=== PATIENT | male | born 1945 | race Caucasian/White ===

== ENCOUNTER 2019-02-12 14:03 | Inpatient (IN) | payer MEDICARE, OTHER ==
[~2019-02-12] VITALS: Ht 185.4 cm; Wt 109.8 kg
--- NOTE | 2019-02-12 14:13 | NUR ---
MD IS AT THE BEDSIDE FOR ASSESSMENT
--- NOTE | 2019-02-12 14:20 | NUR ---
phlebotomy is at the bedside for blood sampling.
[2019-02-12] MEDS ORDERED: SODIUM CHLORIDE FLUSH 10ML SYR IVF ONE (14:30)
[2019-02-12] MEDS ORDERED: methylPREDNISolone SOD SUCC 125 MG/2 ML IV ONE (14:30)
[2019-02-12 14:43] LABS: MEAN CORPUSCULAR HEMOGLOBIN 36.7 pg (27.5-34.5); MEAN CORPUSCULAR VOLUME 107.9 fL (81-97); MEAN PLATELET VOLUME 8.7 fL (7.4-10.4); PLATELET COUNT 116 x10^3/uL (130-400); RED BLOOD COUNT 2.69 x10^6/uL (4.38-5.82); RED CELL DISTRIBUTION WIDTH 20.5 % (9.4-14.8)
[2019-02-12 14:52] LABS: ALANINE AMINOTRANSFERASE 51 U/L (12-78); ALBUMIN 3.3 g/dL (3.4-5.0); ANION GAP 9 mmol/L (5-15); CHLORIDE 106 mmol/L (98-107); CREATININE 1.51 mg/dL (0.7-1.3)
[2019-02-12] MEDS ORDERED: methylPREDNISolone SOD SUCC 125 MG/2 ML ONE (14:53)
[2019-02-12 14:57] LABS: ALKALINE PHOSPHATASE 72 U/L (45-117); BILIRUBIN,TOTAL 1.6 mg/dL (0.2-1.0); TOTAL PROTEIN 7.5 g/dL (6.4-8.2); TROPONIN I < 0.015 ng/mL (0.000-0.045)
--- NOTE | 2019-02-12 14:59 | NUR ---
is at the bedside for recheck
[2019-02-12] MEDS ORDERED: ALBUTEROL/IPRATROPIUM 2.5MG/0.5MG, 3 ML NPPB ONE (15:00)
[2019-02-12 15:02] LABS: MD YES
[2019-02-12 15:06] LABS: ANISOCYTOSIS 1+; BAND#(MANUAL) 1.52 x10^3/uL; BANDS%(MANUAL) 20 % (0-7); LYMPH#(MANUAL) 0.38 x10^3/uL (1-3.4); LYMPHS% (MANUAL) 5 % (22-44); MONOS#(MANUAL) 0.76 x10^3/uL (0.3-2.7); MONOS% (MANUAL) 10 % (2-9); SEG#(MANUAL) 4.94 x10^3/uL (1.8-6.8); SEGS% (MANUAL) 65 % (42-75)
[2019-02-12 15:07] LABS: <PLATELET ESTIMATE> DECREASED; LARGE PLATELETS 1+; POLYCHROMASIA 1+
[2019-02-12] MEDS ORDERED: SODIUM CHLORIDE 0.9% 1,000 ML IV SCH (15:24)
[2019-02-12] MEDS ORDERED: CEFTRIAXONE PMX 1GM/50ML 50 ML ONE (15:25)
[2019-02-12] MEDS ORDERED: ALBUTEROL/IPRATROPIUM 2.5MG/0.5MG, 3 ML ONE (15:26)
[2019-02-12] MEDS ORDERED: CEFTRIAXONE PMX 1GM/50ML 50 ML IV ONE (15:30)
[2019-02-12] MEDS ORDERED: AZITHROMYCIN 500 MG in SODIUM CHLORIDE 0.9% 250 ML IV ONE (15:30)
[2019-02-12] MEDS: HEPARIN 5,000 UNITS/ML, 1ML SQ SCH (15:30)
[2019-02-12] MEDS ORDERED: ONDANSETRON 2MG/ML, 2ML IVPush PRN (15:30)
[2019-02-12] MEDS ORDERED: ACETAMINOPHEN 325 MG TABLET PO PRN (15:30)
[2019-02-12] MEDS ORDERED: NICOTINE 21 MG/24 HR PATCH.TD24 ONE (16:23)
[2019-02-12] MEDS ORDERED: HEPARIN 5,000 UNITS/ML, 1ML ONE (16:23)
[2019-02-12] MEDS: NICOTINE 21 MG/24 HR PATCH.TD24 TD SCH (17:17)
[2019-02-12] MEDS ORDERED: OXYcodone IR 5MG TABLET ONE (17:38)
[2019-02-12] MEDS: OXYcodone IR 5MG TABLET PO PRN (17:41)
--- NOTE | 2019-02-12 17:48 | NUR ---
VERBAL SBAR EXCHANGED Manohar MURDOCK (DIANE) ON THE FLOOR FOR ADMISSION. WE WILL BEGIN TO PREPARE FOR TRANSPORT AT THIS TIME.
[2019-02-12 19:45] VITALS: BP 108/57
[2019-02-13 00:56] VITALS: BP 145/81
[2019-02-13] MEDS: HEPARIN 5,000 UNITS/ML, 1ML SQ SCH ×2 (03:25→16:05)
[2019-02-13] MEDS: OXYcodone IR 5MG TABLET PO PRN ×4 (04:10→21:55)
[2019-02-13 05:34] LABS: ALANINE AMINOTRANSFERASE 43 U/L (12-78); ALBUMIN 2.9 g/dL (3.4-5.0); ANION GAP 7 mmol/L (5-15); CALCIUM 8.7 mg/dL (8.5-10.1); CHLORIDE 113 mmol/L (98-107); CREATININE 1.19 mg/dL (0.7-1.3)
[2019-02-13 05:36] LABS: ALKALINE PHOSPHATASE 61 U/L (45-117); BILIRUBIN,TOTAL 0.7 mg/dL (0.2-1.0); TOTAL PROTEIN 7.3 g/dL (6.4-8.2)
[2019-02-13 07:45] VITALS: BP 111/66
[2019-02-13 12:27] VITALS: BP 93/53
[2019-02-13] MEDS ORDERED: ALBUTEROL/IPRATROPIUM 2.5MG/0.5MG, 3 ML ONE (13:08)
[2019-02-13 13:17] LABS: MEAN CORPUSCULAR HEMOGLOBIN 35.5 pg (27.5-34.5); MEAN CORPUSCULAR HGB CONC 32.4 g/dL (33.2-36.2); MEAN CORPUSCULAR VOLUME 109.7 fL (81-97); MEAN PLATELET VOLUME 8.5 fL (7.4-10.4); PLATELET COUNT 127 x10^3/uL (130-400); RED BLOOD COUNT 2.65 x10^6/uL (4.38-5.82); RED CELL DISTRIBUTION WIDTH 20.6 % (9.4-14.8)
[2019-02-13] MEDS ORDERED: ALBUTEROL/IPRATROPIUM 2.5MG/0.5MG, 3 ML NPPB PRN (13:30)
[2019-02-13 13:42] LABS: MD YES
[2019-02-13 13:44] LABS: <PLATELET ESTIMATE> DECREASED; ANISOCYTOSIS 1+; BAND#(MANUAL) 1.13 x10^3/uL; BANDS%(MANUAL) 11 % (0-7); LYMPH#(MANUAL) 0.82 x10^3/uL (1-3.4); LYMPHS% (MANUAL) 8 % (22-44); MONOS#(MANUAL) 1.44 x10^3/uL (0.3-2.7); MONOS% (MANUAL) 14 % (2-9); POLYCHROMASIA 1+; SEGS% (MANUAL) 67 % (42-75)
[2019-02-13 13:45] LABS: <PLT MORPHOLOGY> NORMAL PLT MORPH
[2019-02-13] MEDS: NICOTINE 21 MG/24 HR PATCH.TD24 TD SCH (16:05)
[2019-02-13] MEDS: AZITHROMYCIN 500 MG TABLET PO SCH (17:35)
[2019-02-13] MEDS: CEFTRIAXONE PMX 1GM/50ML 50 ML IV SCH (17:35)
[2019-02-13 19:29] VITALS: BP 129/73
[2019-02-13] MEDS ORDERED: ALBUTEROL/IPRATROPIUM 2.5MG/0.5MG, 3 ML NPPB SCH (21:00)
[2019-02-13 21:25] LABS: RAPID INFLUENZA A Negative (Negative); RAPID INFLUENZA B Negative (Negative)
[2019-02-14] MEDS ORDERED: NYST1000 PO (00:23)
[2019-02-14] MEDS ORDERED: FOLI-17 PO (00:23)
[2019-02-14] MEDS ORDERED: OMEP40CA42 PO (00:23)
[2019-02-14] MEDS ORDERED: DIPH25CA61 PO (00:23)
[2019-02-14] MEDS ORDERED: BUDE10.2 INH (00:23)
[2019-02-14] MEDS ORDERED: MAGN400O7 PO (01:01)
[2019-02-14 01:05] VITALS: BP 143/62
[2019-02-14] MEDS: HEPARIN 5,000 UNITS/ML, 1ML SQ SCH ×2 (03:30→16:05)
[2019-02-14] MEDS ORDERED: ALBU8.5H8 INH (03:40)
[2019-02-14] MEDS ORDERED: TIOT4MIS5 INH (03:53)
[2019-02-14 05:44] LABS: MEAN CORPUSCULAR HEMOGLOBIN 36.5 pg (27.5-34.5); MEAN CORPUSCULAR HGB CONC 33.4 g/dL (33.2-36.2); MEAN CORPUSCULAR VOLUME 109.4 fL (81-97); MEAN PLATELET VOLUME 8.7 fL (7.4-10.4); PLATELET COUNT 111 x10^3/uL (130-400); RED BLOOD COUNT 2.38 x10^6/uL (4.38-5.82); RED CELL DISTRIBUTION WIDTH 20.7 % (9.4-14.8)
[2019-02-14 05:49] LABS: ANION GAP 5 mmol/L (5-15); CALCIUM 7.8 mg/dL (8.5-10.1); CHLORIDE 112 mmol/L (98-107)
[2019-02-14 05:50] LABS: CREATININE 1.27 mg/dL (0.7-1.3)
[2019-02-14 06:08] LABS: MD YES
[2019-02-14 06:11] LABS: BAND#(MANUAL) 0.18 x10^3/uL; BANDS%(MANUAL) 4 % (0-7); EOS#(MANUAL) 0.05 x10^3/uL (0.0-0.4); EOS% (MANUAL) 1 % (1-7); LYMPH#(MANUAL) 1.52 x10^3/uL (1-3.4); LYMPHS% (MANUAL) 33 % (22-44); MONOS% (MANUAL) 16 % (2-9); SEG#(MANUAL) 2.12 x10^3/uL (1.8-6.8); SEGS% (MANUAL) 46 % (42-75)
[2019-02-14 06:12] LABS: MONOS#(MANUAL) 0.74 x10^3/uL (0.3-2.7)
[2019-02-14 06:13] LABS: <PLT MORPHOLOGY> NORMAL PLT MORPH; ANISOCYTOSIS 1+; POLYCHROMASIA 1+
[2019-02-14 06:14] LABS: <PLATELET ESTIMATE> DECREASED
[2019-02-14 07:41] VITALS: BP 102/63
[2019-02-14] MEDS: AZITHROMYCIN 500 MG TABLET PO SCH (09:03)
[2019-02-14] MEDS: OXYcodone IR 5MG TABLET PO PRN ×4 (09:03→21:28)
[2019-02-14 12:19] VITALS: BP 150/81
[2019-02-14] MEDS: NICOTINE 21 MG/24 HR PATCH.TD24 TD SCH (16:04)
[2019-02-14] MEDS: CEFTRIAXONE PMX 1GM/50ML 50 ML IV SCH (17:24)
[2019-02-14 19:45] VITALS: BP 158/69
[2019-02-15 01:31] VITALS: BP 116/63
[2019-02-15] MEDS: HEPARIN 5,000 UNITS/ML, 1ML SQ SCH ×2 (03:41→17:57)
[2019-02-15 07:38] LABS: MEAN CORPUSCULAR HEMOGLOBIN 35.9 pg (27.5-34.5); MEAN CORPUSCULAR HGB CONC 33.2 g/dL (33.2-36.2); MEAN CORPUSCULAR VOLUME 108.3 fL (81-97); MEAN PLATELET VOLUME 8.4 fL (7.4-10.4); PLATELET COUNT 137 x10^3/uL (130-400); RED BLOOD COUNT 2.62 x10^6/uL (4.38-5.82)
[2019-02-15 07:41] LABS: CALCIUM 8.7 mg/dL (8.5-10.1)
[2019-02-15 07:56] LABS: ANION GAP 5 mmol/L (5-15); CHLORIDE 111 mmol/L (98-107); CREATININE 1.19 mg/dL (0.7-1.3)
[2019-02-15 08:31] LABS: MD YES
[2019-02-15] MEDS: AZITHROMYCIN 500 MG TABLET PO SCH (08:41)
[2019-02-15] MEDS: OXYcodone IR 5MG TABLET PO PRN ×4 (08:41→22:19)
[2019-02-15 09:17] LABS: ANISOCYTOSIS 1+; LYMPHS% (MANUAL) 46 % (22-44); MONOS#(MANUAL) 0.57 x10^3/uL (0.3-2.7); MONOS% (MANUAL) 22 % (2-9); REACTIVE LYMPHS % (MANUAL) 4 % (0-0); SEG#(MANUAL) 0.73 x10^3/uL (1.8-6.8); SEGS% (MANUAL) 28 % (42-75)
[2019-02-15 09:18] LABS: <PLATELET ESTIMATE> ADEQUATE; <PLT MORPHOLOGY> NORMAL PLT MORPH
[2019-02-15 09:25] VITALS: BP 124/75
[2019-02-15] MEDS: CEFTRIAXONE PMX 1GM/50ML 50 ML IV SCH (17:57)
[2019-02-15] MEDS: NICOTINE 21 MG/24 HR PATCH.TD24 TD SCH (17:57)
[2019-02-15 20:01] VITALS: BP 133/72
[2019-02-16 02:02] VITALS: BP 163/78
[2019-02-16] MEDS: HEPARIN 5,000 UNITS/ML, 1ML SQ SCH (03:30)
[2019-02-16 05:44] LABS: MEAN CORPUSCULAR HEMOGLOBIN 35.9 pg (27.5-34.5); MEAN CORPUSCULAR HGB CONC 33.7 g/dL (33.2-36.2); MEAN CORPUSCULAR VOLUME 106.5 fL (81-97); MEAN PLATELET VOLUME 8.4 fL (7.4-10.4); PLATELET COUNT 146 x10^3/uL (130-400); RED BLOOD COUNT 2.69 x10^6/uL (4.38-5.82); RED CELL DISTRIBUTION WIDTH 19.8 % (9.4-14.8)
[2019-02-16 05:56] LABS: ANION GAP 6 mmol/L (5-15); CALCIUM 8.2 mg/dL (8.5-10.1); CHLORIDE 109 mmol/L (98-107); CREATININE 1.11 mg/dL (0.7-1.3)
[2019-02-16 06:02] LABS: MD YES
[2019-02-16 06:06] LABS: EOS#(MANUAL) 0.09 x10^3/uL (0.0-0.4); EOS% (MANUAL) 3 % (1-7); LYMPH#(MANUAL) 1.29 x10^3/uL (1-3.4); LYMPHS% (MANUAL) 43 % (22-44); MONOS#(MANUAL) 0.57 x10^3/uL (0.3-2.7); MONOS% (MANUAL) 19 % (2-9); REACTIVE LYMPHS # (MANUAL) 0.06 x10^3/uL (0-0); REACTIVE LYMPHS % (MANUAL) 2 % (0-0); SEG#(MANUAL) 0.99 x10^3/uL (1.8-6.8); SEGS% (MANUAL) 33 % (42-75)
[2019-02-16 06:07] LABS: ANISOCYTOSIS 1+; POLYCHROMASIA 1+
[2019-02-16 06:08] LABS: <PLATELET ESTIMATE> ADEQUATE; <PLT MORPHOLOGY> NORMAL PLT MORPH
[2019-02-16 07:24] VITALS: BP 121/65
[2019-02-16] MEDS: AZITHROMYCIN 500 MG TABLET PO SCH (08:08)
[2019-02-16] MEDS: OXYcodone IR 5MG TABLET PO PRN ×2 (08:22→12:44)
[2019-02-16] MEDS ORDERED: CEFTRIAXONE PMX 1GM/50ML 50 ML IV SCH (12:00)
[2019-02-16] MEDS ORDERED: AZITHROMYCIN 500 MG TABLET PO ONE (12:30)
== END 2019-02-16 14:52 | disposition home or self-care (01) | DRG 871 ==
LOC: ED 15:03 → EDIP 15:04 → SUATTDRO 15:21 → ED 15:33 → 3N 19:15 → DCLOUNGE 02-16 14:41
PROVIDERS: ADMIT Hospitalist; ATTEND Hospitalist
DX: A41.9 Sepsis, unspecified organism (principal); J18.9 Pneumonia, unspecified organism; J96.21 Acute and chronic respiratory failure with hypoxia; N17.0 Acute kidney failure with tubular necrosis; E87.2 Acidosis; J44.0 Chronic obstructive pulmonary disease with (acute) lower respiratory infection; R17 Unspecified jaundice; D61.818 Other pancytopenia; R79.89 Other specified abnormal findings of blood chemistry; N28.9 Disorder of kidney and ureter, unspecified; D53.9 Nutritional anemia, unspecified; E83.51 Hypocalcemia; F17.200 Nicotine dependence, unspecified, uncomplicated; I69.398 Other sequelae of cerebral infarction; Z79.891 Long term (current) use of opiate analgesic; Z99.81 Dependence on supplemental oxygen; Z98.1 Arthrodesis status; Z71.6 Tobacco abuse counseling
CPT/HCPCS: 36415; 71045; 80048; 80053; 83605; 83880; 84145; 84484; 85025; 87040; 87400; 93005; 94640; 96365; 96366; 96375; G0378; J0456; J0696; J1644; J2930; J7030; J7050